=== PATIENT | female | born 2000 | race Hispanic/Latino ===

== ENCOUNTER 2024-09-02 20:01 | Emergency (ER) | payer SELFPAY ==
[2024-09-02 20:07] VITALS: BP 135/71
[2024-09-02 20:23] LABS: % Basophils 0.5 % (0-2); % Eosinophils 0.4 % (0-6); % Immature Granulocytes 0.3 % (0-0.5); % Lymphocytes 32.2 % (20.5-51.1); % Monocytes 8.1 % (1.7-9.3); % Neutrophils 58.5 % (42.2-75.2); Absolute Basophils 0.1 10^3/uL (0-0.2); Absolute Eosinophils 0.1 10^3/uL (0-0.7); Absolute Lymphocytes 3.8 10^3/uL (1.2-3.4); Absolute Neutrophils 6.9 10^3/uL (1.4-6.5); Hematocrit 37.2 % (37.0-47.0); Hemoglobin 12.1 g/dL (12.0-16.0); Mean Corp Hgb Conc. 32.5 g/dL (33.0-37.0); Mean Corpuscular Hgb 27.6 pg (27.0-31.0); Mean Corpuscular Volume 84.7 fL (81.0-99.0); Mean Platelet Volume 8.5 fL (7.4-10.4); Nucleated Red Blood Cells % 0 %; Platelet Count 407 10^3/uL (130-400); Red Blood Cell Count 4.39 10^6/uL (4.20-5.40); Red Cell Dist. Width 13.3 % (11.5-14.5); White Blood Cell Count 11.7 10^3/uL (4.8-10.8)
[2024-09-02 20:43] LABS: HCG, Serum Qualitative Screen Negative
[2024-09-02 20:53] LABS: ALT (SGPT) 16 U/L (0-35); AST (SGOT) 25 U/L (14-36); Albumin 4.2 g/dl (3.5-5.0); Alkaline Phosphatase 95 U/L (38-126); Blood Urea Nitrogen 12 mg/dl (7-17); Calcium 9.2 mg/dl (8.4-10.2); Carbon Dioxide 22 mmol/L (22-30); Chloride 105 mmol/L (98-107); Glucose 91 mg/dl (70-99); Lipase 78 U/L (23-300); Sodium 137 mmol/L (135-145); Total Bilirubin 0.1 mg/dl (0.2-1.3); Total Protein 7.3 g/dl (6.3-8.2); eGFR > 60.00
--- NOTE | 2024-09-03 01:18 | ED.GENMED ---
History of Present Illness
General
Chief Complaint: Abdominal Symptoms
Source: patient, family (Brother) and slack cooper (Brother)
Exam Limitations: other (Language barrier)
Time Seen by Provider: 09/03/24 00:41
History of Present Illness
History of Present Illness:
This is a 24 year old female that comes in with c/o epigastric discomfort. Brother states that she has this upper abd discomfort that is worse at night. States that this has been going on for the past 4 months. States that she gets burning up into
her chest. States that she has been nauseated and had some diarrhea. States that she has a headache with dizziness and has felt SOB. Denies any fever, chills, chest pain, vomiting, urinary burning.
Past History
Past History
ED Past Medical History: Seizures
ED Past Surgical History: None
Social History
Tobacco: Non-smoker
Alcohol: None
Drug: None
Living: with family
Employment: Employed
Review of Systems
Review of Systems
All Other Systems: ROS reviewed and negative except as documented in HPI and ROS
Constitutional: Reports no symptoms; Denies fever or chills
EENT: Reports no symptoms
Respiratory: Reports trouble breathing; Denies cough
Cardiac: Reports no symptoms; Denies chest pain
ABD/GI: Reports abdominal pain, nausea and diarrhea; Denies vomiting
: Reports no symptoms; Denies dysuria, frequency or urgency
Musculoskeletal: Reports no symptoms
Skin: Reports no symptoms
Neurological: Reports dizzy and headache
Psychiatric: Reports no symptoms
Phy Exam
General Physical Exam
General Presentation: well appearing and no apparent distress
General age: appears stated age
General Skin: warm and dry
General Habitus: normal
General Mental: alert
General Hydration: appears well hydrated
ENT Exam
ENT Exam: TM's normal, pharynx normal and neck supple
Eye Exam
Eye Exam: EOMI
Cardiovascular Exam
Cardiovascular Exam: regular rate/rhythm, no edema, no murmur and normal peripheral pulses
Pulmonary Exam
Pulmonary Exam: lungs clear, no respiratory distress, no rales, chest non tender, no crackles, no rhonchi, no wheezing and no cough
Gastrointestinal Exam
Gastrointestinal Exam: normal bowel sounds, non tender, soft, no organomegaly, no pulsatile mass and non distended
Musculoskeletal Exam
Musculoskeletal Exam: full ROM and no edema
Skin Exam
Skin Exam: normal color, warm/dry, no rash and no petechia
Psychiatric Exam
Psychiatric Exam: normal mood/affect
Course
Orders/Labs/Results
Orders:
Orders
09/02/24 20:10
Test Result ONCE
09/02/24 20:16
Complete Blood Count/With Diff Urgent
Comprehensive Metabolic Panel Urgent
HCG, Serum Qualitative Screen Urgent
Comment: Notify provider if positive test present
Lipase Urgent
09/03/24 01:17
Pantoprazole [Protonix] 40 mg PO NOW STA
Abnormal Lab Results
09/02/24
20:16
WBC 11.7 H 10^3/uL
(4.8-10.8)
MCHC 32.5 L g/dL
(33.0-37.0)
Plt Count 407 H 10^3/uL
(130-400)
Absolute Neuts (auto) 6.9 H 10^3/uL
(1.4-6.5)
Absolute Lymphs (auto) 3.8 H 10^3/uL
(1.2-3.4)
Absolute Monos (auto) 1.0 H 10^3/uL
(0.1-0.6)
Total Bilirubin 0.1 L mg/dl
(0.2-1.3)
09/02/24 20:16
09/02/24 20:16
WBC slightly elevated. Plt slightly elevated. Lipase normal at 78, HCG negative
Vital Signs
Initial and Last Documented VS:
Initial Vital Signs
Temp Pulse Resp BP Pulse Ox
97.5 F 65 20 135/71 100
09/02/24 20:07 09/02/24 20:07 09/02/24 20:07 09/02/24 20:07 09/02/24 20:07
Last Documented Vital Signs
Temp Pulse Resp BP Pulse Ox
97.5 F 65 20 135/71 100
09/02/24 20:07 09/02/24 20:07 09/02/24 20:07 09/02/24 20:07 09/02/24 20:07
MDM/Problems Addressed
Differential Diagnosis Includes:
Gastritis
MDM/Problems Addressed:
This is 24 year old female that comes in with c/o epigastric pain. States that this has been going on for the past 4 months. States that she does drink Coffee.
Explained to patient and brother that her blood work is normal. This is most likely a Gastritis. Will place patient on Protonix. Encouraged her to stop drinking Caffeine as this will make the reflux worse. Patient to follow up in the Clinic for
further evatluation.
Chronic conditions affecting care:
NA
Acute Exacerbation and/or Progression of Chronic Illness:
NA
*Pulse Oximetry
Patient hypoxic: no
*EKG
Interpreted by ED Provider?: NA
Rate: EKG- N/A
*Rubble Placer Interpretation
Rate: Rubble Placer- N/A
*Critical Care Note
Total Time (30-74mins, 75-104mins- exclusive of procedures): Not Applicable
ED Attending Note
-
Portions of this chart may have been created with voice recognition software.� Occasional wrong word or��sound alike� substitutions may have occurred due to the inherent limitations of voice recognition software.
Discharge Plan
Departure
Patient Disposition: Home (Routine Discharge)
Date of Disposition: 09/03/24
Time of Disposition: :24
Patient with high blood pressure during this ER visit?: Yes
Condition: Good
Covid-19: Not Applicable
Discharge Problem:
Gastritis
Instructions: Garza Diet, Gastritis (DC), BLOOD PRESSURE
Prescriptions:
New
pantoprazole [Protonix] 40 mg tablet,delayed release (DR/EC)
40 mg PO DAILY Qty: 30 0RF
No Action
carbamazepine 200 MG tablet
200 mg PO BID Qty: 60 0RF
Referrals:
NONE,* [Family Provider] -
Activity Restrictions/Additional Instructions:
As discussed, your blood work is normal. This looks to be a gastritis. Please try and stop your caffeine intake as this will make the reflux worse. Please increase your water intake to 8-8oz glasses daily. Follow up in the Clinic for recheck. IF YOU
HAVE INCREASED OR CHANGING PAIN, OR YOU HAVE ANY OTHER CONCERNS PLEASE RETURN TO THE EMERGNCY ROOM. .
Interventions
Interventions:
*Risk Screen - Suicide Last Done: 09/02/24 20:07
*General Assessment Last Done: 09/02/24 20:07
*Neglect/Abuse Screening Last Done: 09/02/24 20:07
ED- Fall Risk Assessment Last Done: 09/03/24 00:57
*ED COVID-19 Vaccine History Last Done: 09/03/24 00:57
AF-Hhosot-Kxaqodsapd Assessment Last Done: 09/03/24 00:57
Discharge Date and Time
Print Language: MAORI
[2024-09-03 01:29] VITALS: BP 115/67
[2024-09-03] MEDS: PROTONIX 40 MG PO (01:31)
== END 2024-09-03 01:47 | disposition home or self-care (01) ==
LOC: EMR 20:01
PROVIDERS: Emergency Medicine; EMERGENCY PHYSICIAN Emergency Medicine
DX: K29.70 Gastritis, unspecified, without bleeding (principal); K21.9 Gastro-esophageal reflux disease without esophagitis
CPT/HCPCS: 99283; 80053; 83690; 84703; 85025

== ENCOUNTER 2025-07-24 09:17 | Emergency (ER) | payer OTHER, SELFPAY ==
[2025-07-24 09:22] VITALS: BP 122/74
--- NOTE | 2025-07-24 10:18 | ED.GENMED ---
History of Present Illness
General
Chief Complaint: Urinary Symptoms
Source: patient
Exam Limitations: none
Time Seen by Provider: 07/24/25 10:06
History of Present Illness
History of Present Illness:
25-year-old female presents with 3 to 4 days worth of lower abdominal pain radiating to bilateral flanks with dysuria increased frequency and nausea and vomiting. No history of kidney stones. No history of ovarian cyst. Last menstrual cycle was 2
weeks ago. No chance of . Please note patient is [place]-speaking entire history and physical was performed with language line in the room
Past History
Past History
ED Past Medical History: Seizures
ED Past Surgical History: None
Social History
Tobacco: Non-smoker
Alcohol: None
Drug: None
Living: with family
Employment: Employed
Phy Exam
Physical Exam
Physical Exam:
General: Uncomfortable appearing female no acute respiratory distress
HEENT: Normal cephalic atraumatic
Heart: Regular rate and rhythm
Lungs: Clear no wheeze
Abdomen is soft tender to the suprapubic region and bilateral flanks
Extremities: No cyanosis
Course
Orders/Labs/Results
Orders:
Orders
07/24/25 10:06
Test Result ONCE
07/24/25 10:11
HCG, Urine Qualitative Screen Routine
Date Specimen was Collected: 07/24/25
Time Specimen was Collected: 10:06
Urinalysis Reflex To Culture Urgent
Date Specimen was Collected: 07/24/25
Time Specimen was Collected: 10:06
Urine Microscopic Reflex Cult Urgent
Urine Culture Urgent
EMERALD Source: U
Specimen Description:
Date Specimen was Collected: 07/24/25
Time Specimen was Collected: 10:06
07/24/25 10:17
CT Abd/pelvis W Iv Cont Urgent
Comment:
Reason For Exam: lower abdominal and flank pain with urinary sx
0.9% Sodium Chloride 1000 ml [Nss] 1,000 ml IV BOLUS
Ketorolac [Toradol] 15 mg IV NOW STA
Ondansetron Injectable [Zofran] 4 mg IV NOW STA
Test Result ONCE
07/24/25 10:27
Complete Blood Count/With Diff Urgent
Comprehensive Metabolic Panel Urgent
07/24/25 11:53
CefTRIAXone [Rocephin] 1,000 mg IV NOW STA
Abnormal Lab Results
07/24/25 07/24/25
10:11 10:27
WBC 13.3 H 10^3/uL
(4.8-10.8)
RBC 4.17 L 10^6/uL
(4.20-5.40)
Hgb 11.6 L g/dL
(12.0-16.0)
Hct 34.8 L %
(37.0-47.0)
Plt Count 432 H 10^3/uL
(130-400)
Absolute Neuts (auto) 9.3 H 10^3/uL
(1.4-6.5)
Absolute Monos (auto) 0.8 H 10^3/uL
(0.1-0.6)
Ur Occult Blood Reflex 4+ A
(Negative)
Leukocyte Esterase Rfl 3+ A
(Negative)
Urine RBC 7-10 A /HPF
(0-2)
Urine WBC (Reflex) 30-40 A /HPF
(0-5)
Urine Bacteria (Reflex) Moderate A
(Negative)
Urine Albumin (Reflex) 2+ A
(Neg - Trace)
07/24/25 10:27
07/24/25 10:27
Vital Signs
Initial and Last Documented VS:
Initial Vital Signs
Temp Pulse Resp BP Pulse Ox
98.3 F 89 16 122/74 98
07/24/25 09:22 07/24/25 09:22 07/24/25 09:22 07/24/25 09:22 07/24/25 09:22
Last Documented Vital Signs
Temp Pulse Resp BP Pulse Ox
98.3 F 89 16 106/66 100
07/24/25 09:22 07/24/25 09:22 07/24/25 09:22 07/24/25 12:00 07/24/25 12:30
MDM/Problems Addressed
Differential Diagnosis Includes:
Patient with lower abdominal pain and urinary symptoms. Consider UTI for cystitis versus ascending UTI versus pyelonephritis or renal colic constipation or appendicitis. Pain seems to be pretty diffuse to be ovarian related
Will check labs treat symptoms with Toradol and Zofran urinalysis pending. Ordered CT and CT
*Pulse Oximetry
SaO2: 98
Oxygen Mode of Delivery: Room air
Patient hypoxic: no
*Critical Care Note
Total Time (30-74mins, 75-104mins- exclusive of procedures): Not Applicable
Update Note
Update Note:
CT shows bladder wall thickening to suggest cystitis. Workup consistent with UTI on urinalysis. White blood cell count slightly elevated. No evidence of pyelonephritis. Patient feeling much better after fluids and Toradol. She was given a dose
of Rocephin here but does not need to be in the hospital. Will discharge on Omnicef. Urine culture pending.
ED Attending Note
-
Portions of this chart may have been created with voice recognition software.� Occasional wrong word or��sound alike� substitutions may have occurred due to the inherent limitations of voice recognition software.
Discharge Plan
Departure
Patient Disposition: Home (Routine Discharge)
Date of Disposition: 07/24/25
Time of Disposition: 13:07
Patient with high blood pressure during this ER visit?: No
Discharge Problem:
UTI (urinary tract infection)
Instructions: Urinary Tract Infection, Adult (DC)
Prescriptions:
New
cefdinir 300 mg capsule
300 mg PO BID Qty: 14 0RF
No Action
carbamazepine 200 MG tablet
200 mg PO BID Qty: 60 0RF
pantoprazole [Protonix] 40 mg tablet,delayed release (DR/EC)
40 mg PO DAILY Qty: 30 0RF
Referrals:
NONE,* [Family Provider, Internal Medicine]
Activity Restrictions/Additional Instructions:
Drink plenty of fluids. Take antibiotics as directed. Return if worse otherwise follow-up with your doctor
Sandra abundante l�quido. [facility] antibi�ticos seg�n las indicaciones. Regrese si empeora; de lo contrario, consulte con staley m�dico.
Interventions
Interventions:
*Risk Screen - Suicide Last Done: 07/24/25 09:22
*General Assessment Last Done: 07/24/25 10:14
*Neglect/Abuse Screening Last Done: 07/24/25 09:22
*ED- Fall Risk Assessment Last Done: 07/24/25 10:36
*ED COVID-19 Vaccine History Last Done: 07/24/25 10:36
*ED Influenza Vaccine History Last Done: 07/24/25 10:36
ED-Female Genitourinary Assessment Last Done: 07/24/25 10:14
Discharge Date and Time
Print Language: [place]
[2025-07-24 10:23] LABS: Urine Character Slightly Cloudy (Clear)
[2025-07-24] MEDS: NSS 1000 IV (10:25)
[2025-07-24] MEDS: TORADOL 15 MG IV (10:25)
[2025-07-24] MEDS: ZOFRAN 4 MG IV (10:25)
[2025-07-24 10:30] VITALS: BP 114/70
[2025-07-24 10:30] LABS: HCG, Urine Qualitative Screen Negative
[2025-07-24 10:41] LABS: Hematocrit 34.8 % (37.0-47.0); Hemoglobin 11.6 g/dL (12.0-16.0); Mean Corp Hgb Conc. 33.3 g/dL (33.0-37.0); Mean Corpuscular Volume 83.5 fL (81.0-99.0); Nucleated Red Blood Cells % 0 %; Platelet Count 432 10^3/uL (130-400); Red Cell Dist. Width 13.3 % (11.5-14.5)
[2025-07-24 11:00] VITALS: BP 102/60
[2025-07-24 11:00] LABS: ALT (SGPT) 15 U/L (0-35); AST (SGOT) 21 U/L (14-36); Albumin 4.2 g/dl (3.5-5.0); Alkaline Phosphatase 86 U/L (38-126); Blood Urea Nitrogen 8 mg/dl (7-17); Calcium 9.2 mg/dl (8.4-10.2); Carbon Dioxide 24 mmol/L (22-30); Chloride 107 mmol/L (98-107); Glucose 89 mg/dl (70-99); Potassium 3.9 mmol/L (3.5-5.1); Sodium 138 mmol/L (135-145); Total Protein 7.6 g/dl (6.3-8.2); eGFR > 60.00
[2025-07-24 11:15] LABS: Urine White Cell 30-40 /HPF (0-5)
[2025-07-24 12:00] VITALS: BP 106/66
[2025-07-24] MEDS: ROCEPHIN 1000 MG IV (12:02)
== END 2025-07-24 13:20 | disposition home or self-care (01) ==
LOC: EMR 09:17
PROVIDERS: Physician Assistant; EMERGENCY PHYSICIAN Emergency Medicine
DX: N39.0 Urinary tract infection, site not specified (principal)
CPT/HCPCS: 99284; 96374; 96375; 96361; 74177; 80053; 81003; 81015; 81025; 85025; 87086; 87147; Q9967